=== PATIENT | male | born 1945 | race Caucasian/White ===

== ENCOUNTER 2017-02-02 00:31 | Inpatient (IN) | payer MEDICARE, OTHER ==
--- NOTE | ~2017-02-02 | CN ---
Consultation Report [facility] [address] [place]. [address] NAME: SERJIO MARX : 46 STATUS : ADM IN PAT#: [id number] AGE: 72 ADM/REG DATE : 02/02/17 MR#: [id number] REPORT SERV DATE: 02/05/17 DICTATED BY: SRIDEVI TORRES DATE: 02/05/17 REPORT STATUS : Draft TRANSCRIBED BY: MODGerald DATE: 02/05/17 CONSULT DATE OF CONSULTATION: 02/04/2017 HISTORY OF PRESENT ILLNESS: Mr. Stuart Rey is a pleasant gentleman, who has a history of chronic abdominal pain especially in the lower abdomen with colicky in nature. He initially presented to the ER in [facility] and he also had complaints of pain in the epigastric region and in the chest, and was transferred here. An EKG was done, and a stress test was done, and they were found to be normal. The patient complains of now having colicky abdominal pain in the lower abdomen. He is on hydrocodone about 10 mg four times a day for chronic back pain. He has no constipation, no nausea, and no vomiting. PAST MEDICAL HISTORY: His previous medical history is significant for diverticulosis, nephrolithiasis, hypertension, coronary artery disease, peripheral vascular disease, history of mesenteric ischemia with celiac artery stenting, gastroesophageal reflux disease, gastroparesis, and chronic abdominal pain. PAST SURGICAL HISTORY: Significant for cholecystectomy, appendectomy, TURP, left carotid endarterectomy, lumbar fusion, cardiac PCI, celiac artery PCI. ALLERGIES: NONE KNOWN. HOME MEDICATIONS: Aspirin 81 mg per day, Colace 200 mg daily p.r.n., Levsin 0.125 mg q.4 hours p.r.n., lidocaine topical patch p.r.n., Reglan 10 mg before meals, Lopressor 25 mg t.i.d., nitroglycerin 0.4 mg sublingual p.r.n., Protonix 40 mg daily, Prilosec 20 mg daily, Endocet 10/325 one tablet q.i.d., Pravachol 40 mg at bedtime, Phenergan 25 mg q.4 hours p.r.n., and Ambien 10 mg at bedtime. SOCIAL HISTORY: He was a former smoker. Quit years ago. Denies any alcohol. FAMILY HISTORY: Positive for coronary artery disease in multiple members of his family. Father diseased of cirrhosis of the liver. Siblings with history of cirrhosis and coronary artery disease. LABORATORY DATA: Lab show a WBC count of 15, with a hemoglobin of 15.1, hematocrit of 45.5, platelet count is 244. BUN, creatinine, and electrolytes are normal. Total bilirubin is 0.5. ALT is 20, AST is 17, alkaline phosphatase is 97. Cardiac enzymes are 0.11 at [facility]. He had an elevated troponin to 0.16. CPK was also elevated, and CK-MB was also elevated. Urinalysis was normal. Chest x-ray showed COPD. CT scan of the abdomen shows a 3.63 cm distal abdominal aortic aneurysm, but no other pathology. PHYSICAL EXAMINATION: VITAL SIGNS: Temperature is normal. Consultation Report [address] [address] NAME: SERJIO MARX : 46 STATUS : ADM IN [facility]#: [id number] AGE: 72 ADM/REG DATE : 02/02/17 MR#: [id number] REPORT SERV DATE: 02/05/17 DICTATED BY: SRIDEVI TORRES DATE: 02/05/17 REPORT STATUS : Draft TRANSCRIBED BY: JORDANA DATE: 02/05/17 NECK: Supple. Trachea is central. Carotids are well felt on both sides. CARDIOVASCULAR: S1 and S2 are heard. There is no S3. ABDOMEN: Soft. Just complaints of tenderness in the lower abdomen around the umbilicus. Bowel sounds are heard. Hernial orifices are normal. EXTREMITIES: Dorsalis pedis and posterior tibial are well felt on both sides. NEUROLOGIC: Higher functions, cranial nerves and reflexes are normal. CURRENT MEDICATIONS: Aspirin 81 mg per day, Atorvastatin 80 mg per day, enoxaparin (Lovenox) 40 mg subcu q.24 hours, Reglan 10 mg p.o. three times a day, metoprolol 25 mg p.o. b.i.d., oxycodone 10/325, one tablet t.i.d. CURRENT LABORATORY DATA: BUN, creatinine, and electrolytes are normal. Hemoglobin is 11.2, hematocrit is 33.3. CPK is 460. Troponin is normal. He has had a stress test done here which was found to be normal. IMPRESSION: 1. Colicky abdominal pain. Differential diagnosis of irritable bowel syndrome. 2. Diarrhea, intermittent with abdominal pain. Differential diagnosis of irritable bowel syndrome/bacterial overgrowth. 3. Gastroesophageal reflux disease. 4. Anemia. 5. Peripheral vascular disease. 6. Chronic back pain. 7. Peripheral vascular disease. 8. Coronary artery disease. 9. Hypertension. 10.Nephrolithiasis. 11.Diverticulosis. PLAN: Hemoccult stools for blood. Gastric emptying study. Small bowel follow through. An ultrasound abdomen with Doppler to assess flow in the mesenteric vessels. Protonix 40 mg p.o. b.i.d., Carafate 10 mL p.o. three times a day, dicyclomine 20 mg p.o. t.i.d. Thank you for the consult. We will follow the patient with you. EVA/JORDANA Sridevi Torres M.D. / [id number] CC: Consultation Report [address] [address] NAME: SERJIO MARX : 46 STATUS : ADM IN [facility]#: [id number] AGE: 72 ADM/REG DATE : 02/02/17 MR#: [id number] REPORT SERV DATE: 02/05/17 DICTATED BY: SRIDEVI TORRES DATE: 02/05/17 REPORT STATUS : Draft TRANSCRIBED BY: JORDANA DATE: 02/05/17 MD Terri Cesar MD
--- NOTE | ~2017-02-02 | IDS ---
Interim Discharge Summary [facility] [address] [place]. [address] NAME: SERJIO MARX : 46 STATUS : ADM IN PAT#: [id number] AGE: 72 ADM/REG DATE : 02/02/17 MR#: [id number] REPORT SERV DATE: 02/07/17 DICTATED BY: JR. HANSON WILLIAM JOHN DATE: 02/07/17 REPORT STATUS : Draft TRANSCRIBED BY: MODL DATE: 02/07/17 ADMISSION DATE: 02/02/2017 DISCHARGE DATE: WORKING DIAGNOSES: Include, 1. Acute on chronic abdominal pain. 2. Severe gastroparesis. 3. 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 4. Elevated creatine kinase. 5. History of celiac artery stenosis. 6. Urgent hypertension. 7. 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 8. Elevated troponin. 9. Hypokalemia. 10.Left subclavian stenosis operations procedures and CT of the brain done 02/02/2017, which showed mild generalized atrophy. 11.Echocardiogram done 02/02/2017, which showed normal left ventricular size and systolic function. Ejection fraction of 60%. No regional wall motion abnormalities. There was mild diastolic dysfunction. There was normal right ventricular size and systolic function with trace pericardial effusion. There was mild calcific aortic valve stenosis with a mean pressure of 14 mmHg and a calculated aortic valve area of 1.4 sq cm. There was no significant change when compared to prior study. 12.MRI of the brain done 02/03 showed minimal focal area of restricted diffusion in left parietal and occipital lobes consistent with minimal acute infarcts. There was atrophy and chronic microvascular change and minimal mucosal thickening of the ethmoid sinuses. 13.Carotid flow study done 02/05, which showed bilateral carotid category 1 disease with right vertebral antegrade flow and left vertebral biphasic flow. Findings suggested high-grade left subclavian stenosis. 14.Gastric emptying study done 02/05, which showed severe delayed gastric emptying with less than 5% emptying at 90 minutes. 15.Mesenteric duplex ultrasound done 02/05 showed findings possibly consistent with ischemic changes resulting in abdominal pain, however, very poorly visualized secondary to overlying bowel gas. Recommend this be confirmed with MRA of the abdominal vessels. The exam, however, did clearly indicate SMA stenosis. 16.Small-bowel follow-through done 02/07, which showed intrinsically normal small bowel with transit time of less than 90 minutes. CONSULTING PHYSICIANS: Include Dr. Wolfe of Neurology and Dr. Saleh of Gastroenterology. CURRENT MEDICATIONS: Please see list. HOSPITAL COURSE: Briefly, the patient was a 72-year-old gentleman transferred from [facility] Emergency Department to [facility] on 02/02 for abdominal pain and elevated blood pressure and dysarthria. The patient presented to [facility] Emergency Room on evening with multiple complaints including abdominal pain, elevated blood pressure, Interim Discharge Summary [address] [address] NAME: SERJIO MARX : 47 STATUS : ADM IN PAT#: [id number] AGE: 72 ADM/REG DATE : 02/02/17 MR#: [id number] REPORT SERV DATE: 02/07/17 DICTATED BY: JR. HANSON WILLIAM JOHN DATE: 02/07/17 REPORT STATUS : Draft TRANSCRIBED BY: JORDANA DATE: 02/07/17 dizziness, and dysarthria. He does have a history of chronic abdominal pain and has undergone an extensive workup by Dr. Saleh as well as Dr. Dooley with a history of peripheral arterial disease requiring celiac artery stenting. The patient described the pain as severe in nature associated with nausea, but no vomiting, diarrhea, or constipation. On the prior evening sometimes during an episode of severe abdominal pain, his family noted that he was slurring words. He described lightheadedness, feeling of being unsteady on his feet. A family member took his blood pressure with systolic pressures over 240. He therefore presented to the emergency room at [facility] where he had one-time systolic pressure greater than 210. CT of the abdomen and pelvis were unremarkable. White count was 15,000. Troponin was mildly elevated at 0.11. EKG was nonischemic. The patient was subsequently transferred to [facility]. Regarding the patient's abdominal pain, the patient is being followed by Dr. Saleh. He has had multiple studies including stool studies and small-bowel follow-through, which were normal. He did have a gastric emptying study, which showed severely delayed gastric emptying. He has been started on Reglan liquid by Dr. Saleh. Apparently, the IV and tablet formulations do not work for this patient. In addition, the patient had a mesenteric ultrasound, which showed findings suggestive of mesenteric ischemia with SMA stenosis. Recommendation was for an MRA of the abdomen, which is ordered. Regarding the urgent hypertension, this resolved with control of the pain. Regarding the small acute left parietal and occipital infarct. Given the patient's symptoms, an MRI of the brain was done, which did show small parietal and occipital infarcts. He had an echocardiogram as detailed above. He also had a carotid ultrasound, which did not show carotid disease, but did show left subclavian stenosis. I have requested Vascular Surgery to see the patient, Dr. Dooley has seen him in the past. OUTSTANDING ISSUES: 1. Follow up on vascular surgery consult. 2. Follow up on MRA of the abdominal vessels. 3. Advance diet to regular, and if tolerated after the remainder of the workup is complete, may discharge home. 4. For today's lab and exam, please see the progress note. One of my partners will assume care in the morning. WTaylorF/JORDANA Buddy Hanson Jr, MD / [id number] CC: Buddy Hanson Jr, MD Interim Discharge Summary [address] [address] NAME: SERJIO MARX : 46 STATUS : ADM IN [facility]#: [id number] AGE: 72 ADM/REG DATE : 02/02/17 MR#: [id number] REPORT SERV DATE: 02/07/17 DICTATED BY: JR. HANSON WILLIAM JOHN DATE: 02/07/17 REPORT STATUS : Draft TRANSCRIBED BY: MODL DATE: 02/07/17 Terri Lang MD
--- NOTE | ~2017-02-02 | HP ---
History And Physical [place] [id number] [facility] [place]. [address] NAME: SERJIO DAVIDSON : 47 STATUS : ADM Chu PAT#: [id number] AGE: 72 ADM/REG DATE : 02/02/17 MR#: [id number] REPORT SERV DATE: 02/02/17 DICTATED BY: LISA CONDON DATE: 02/02/17 REPORT STATUS : Draft TRANSCRIBED BY: MODGerald DATE: 02/02/17 DATE OF ADMISSION: 02/02/2017 POINT OF ENTRY: Transfer from [facility] Emergency Department. PRIMARY AIRCRAFT SERVICER: Dr. Saleh. CHIEF COMPLAINT: Abdominal pain, elevated blood pressure, and dysarthria. HISTORY OF PRESENT ILLNESS: Mr. Davidson is a 72-year-old gentleman with a history of chronic abdominal pain as well as gastroparesis, peripheral arterial disease, coronary disease, and hypertension, who presented to [facility] Emergency Department on evening with multiple complaints including severe epigastric abdominal pain with elevated blood pressure and dizziness and dysarthria. The patient has history of chronic abdominal pain who has undergone extensive workup by both Dr. Saleh as well as Dr. Dooley given his history of peripheral arterial disease requiring celiac artery stenting. As far as I can tell, the diagnosis he carries is gastroesophageal reflux disease as well as some gastroparesis. The patient states that he has been doing well for the past year without any significant abdominal pain or attacks, having been able to eat and drink as he pleased. He started to develop recurrence of his chronic abdominal pain in the epigastric region starting on Sunday evening. He described it as very severe in nature with some associated nausea, but denies any vomiting, diarrhea, or constipation. On evening in the throes of his severe abdominal pain, his family noted that he was slurring his words. The patient also describes some lightheadedness, feeling unsteady on his feet, and just generally not feeling well as well as having some left-sided chest pain in addition to the abdominal pain. His [id number] came to check on him and took his blood pressure and it was in the 240s over 120s. Initial evaluation in the emergency department was notable for some very elevated blood pressures which they documented at one time systolics greater than 210. CT scan of the abdomen and pelvis was unremarkable. Labs notable for a white count of 15,000. Troponin was mildly elevated at 0.11. EKG was nonischemic. Chest x-ray was clear. The patient was given various rounds of pain medicines, antiemetics, as well as Lopressor 5 mg IV x2 with dramatic improvement in the patient's blood pressure now almost to normal levels. The patient was subsequently transferred to [facility] for higher level of care. REVIEW OF SYSTEMS: Comprehensive review of system otherwise negative unless listed in the history of present illness. PREVIOUS MEDICAL HISTORY: 1. Chronic abdominal pain. 2. Gastroparesis. History And Physical [address] [address] NAME: SERJIO DAVIDSON : 47 STATUS : ADM hCu PAT#: [id number] AGE: 72 ADM/REG DATE : 02/02/17 MR#: [id number] REPORT SERV DATE: 02/02/17 DICTATED BY: LISA CONDON DATE: 02/02/17 REPORT STATUS : Draft TRANSCRIBED BY: JORDANA DATE: 02/02/17 3. Gastroesophageal reflux disease. 4. History of mesenteric ischemia with celiac artery stenting. 5. Peripheral arterial disease. 6. Coronary artery disease with prior PCI. 7. Hypertension. 8. Nephrolithiasis. 9. Diverticulosis. 10.Bladder diverticulum. 11.History of pleural plaques. SURGICAL HISTORY: 1. Cholecystectomy. 2. Appendectomy. 3. TURP. 4. Left carotid endarterectomy. 5. Lumbar fusion. 6. Cardiac PCI. 7. Celiac arterial PCI. ALLERGIES: NO KNOWN DRUG ALLERGIES. HOME MEDICATIONS: 1. Aspirin 81 mg daily. 2. Colace 200 mg daily p.r.n. 3. Levsin 0.125 mg q.4 hours p.r.n. 4. Lidocaine one topical patch daily p.r.n. 5. Reglan 10 mg before meals. 6. Lopressor 25 mg t.i.d. 7. Nitroglycerin 0.4 mg sublingual p.r.n. 8. Protonix 40 mg daily. 9. Prilosec 20 mg daily. 10.Endocet 10/325 one tab q.i.d. 11.Pravachol 40 mg at bedtime. 12.Phenergan 25 mg q.4 hours p.r.n. 13.Ambien 10 mg at bedtime. SOCIAL HISTORY: Former smoker. Quit a year ago. Denies any alcohol. Denies any illicits. FAMILY MEDICAL HISTORY: Mother with coronary artery disease. Still living in her 80s. Father with history of cirrhosis. Siblings with history of cirrhosis and coronary artery disease. LABS AND IMAGIN. White count 15.0, hemoglobin 15.1, hematocrit is 45.1, and platelet count is 244. 2. Sodium is 141, potassium 3.8, chloride 102, carbon dioxide 28, BUN 21, creatinine 1.3, glucose is 134, calcium is 9.7, protein is 8.1, albumin is 4.3, bilirubin is 0.5, ALT is 20, AST 17, alkaline phosphatase is 97. History And Physical [address] [address] NAME: SERJIO DAVIDSON : 47 STATUS : ADM Chu PAT#: [id number] AGE: 72 ADM/REG DATE : 02/02/17 MR#: [id number] REPORT SERV DATE: 02/02/17 DICTATED BY: LISA CONDON DATE: 02/02/17 REPORT STATUS : Draft TRANSCRIBED BY: MODGerald DATE: 02/02/17 3. Troponin is 0.11 at [facility], on recheck troponin here is 0.16, CPK is 462, CK-MB is 3.3. 4. Urinalysis: Specific gravity of 1.020, no evidence of any infection. 5. Chest x-ray per report from [facility] showed COPD type changes with multiple old left rib fractures. 6. CT scan of the abdomen and pelvis also performed at [facility] Emergency Department showed a 3.3 cm distal abdominal aortic aneurysm, but otherwise, no acute abdominopelvic pathology. 7. EKG per my review shows normal sinus rhythm. Heart rates in the 70s with no evidence of acute ischemia or infarction. PHYSICAL EXAMINATION: VITAL SIGNS: Temperature is 97.6 degrees Fahrenheit, pulse is 71, respirations 16, saturating 96% on 2 L by nasal cannula, and blood pressure is 91/62. GENERAL: The patient is awake, alert, in no acute distress. Resting comfortably in bed. He is a well-developed, well-nourished, elderly male. Multiple family members are at bedside. HEENT: Atraumatic and normocephalic. Moist mucous membranes. Pupils are equal, round, reactive to light and accommodation. Extraocular eye movements intact. No scleral icterus. CARDIAC: Regular rate and rhythm. He does have a 2/6 systolic murmur, best over left lower sternal border. Normal S1, normal S2. LUNGS: Clear to auscultation bilaterally. No wheezes, rhonchi, or crackles. ABDOMEN: Soft, tender to palpation over the epigastrium, but no rebound, guarding, or rigidity. EXTREMITIES: Warm, perfused. No cyanosis, clubbing, or edema. SKIN: Warm and dry. PSYCH: Affect appropriate. NEURO: Alert and oriented x3. Cranial nerves 2 through 12 grossly intact. Speech is normal. Gait is not assessed. Strength is 5/5 in bilateral upper and lower extremities. ASSESSMENT: Mr. Davidson is a 72-year-old gentleman who developed the acute onset of severe epigastric abdominal pain on Sunday evening and then found to be severely hypertensive with dysarthria, dizziness, and ataxia, likely secondary to hypertensive emergency in the setting of uncontrolled abdominal pain. PROBLEM LIST: 1. Acute on chronic abdominal pain. 2. Hypertensive emergency. 3. Elevated troponin value. 4. Dysarthria and ataxia. 5. Leukocytosis. 6. Peripheral artery disease. PLAN: 1. Acute on chronic abdominal pain. The patient states that he has been doing well for the past year until Sunday evening when he developed the acute onset of abdominal pain. Having received some IV pain medications at [facility], his abdominal pain History And Physical [address] [address] NAME: SERJIO DAVIDSON : 47 STATUS : ADM [facility] PAT#: [id number] AGE: 72 ADM/REG DATE : 02/02/17 MR#: [id number] REPORT SERV DATE: 02/02/17 DICTATED BY: LISA CONDON DATE: 02/02/17 REPORT STATUS : Draft TRANSCRIBED BY: MODL DATE: 02/02/17 is much improved. We will continue the patient's home medications including Levsin and Reglan, place him on some IV Protonix. We will ask patient's primary horticultural farmworker, Dr. Saleh, for assistance with abdominal pain. CT scan of the abdomen and pelvis was unremarkable. We will check a lipase and amylase given his epigastric nature. 2. Hypertensive emergency. I suspect the patient's elevated blood pressures with systolic as high as 240s and diastolic as high as 120s was secondary to uncontrolled abdominal pain. The patient's blood pressure is now almost on the low side after having received adequate pain control as well as two doses of Lopressor at [facility]. We will continue the patient's home medications. Place him on some hydralazine IV p.r.n. for elevated blood pressures. We will check a CT scan of the brain as well as continue to trend out cardiac enzymes. 3. Dysarthria and ataxia. I suspect the patient's neurologic symptoms represent the neurologic sequela of hypertensive emergency as these have now resolved as his blood pressure has improved. We will check a stat CT scan of the brain as that was not checked at [facility]. Continue to trend out cardiac enzymes. 4. Elevated troponin value. Again, I suspect this is all demand ischemia from his hypertensive emergency. The patient currently denies any chest pain. His EKG is nonischemic. We will continue to trend out cardiac enzymes. Continue the patient's home aspirin as well as beta betty. Place him on high-dose statin and check an echocardiogram. 5. History of mesenteric ischemia. We will defer again to Dr. Saleh, but CT scan of the abdomen and pelvis was unremarkable. The patient denies any recent bleeding to suggest possible ischemic colitis or uncontrolled mesenteric ischemia. 6. DVT prophylaxis. Lovenox subcu. CODE STATUS: The patient wished to be full code. JCB/MODL Lisa Condon MD / [id number] CC: Buddy Hanson Jr, MD Martha Ziegler, MD Jay Philippose, M.D.
--- NOTE | ~2017-02-02 | CN ---
Consultation Report [facility] [address] [place]. [address] NAME: SERIJO MARX : 46 STATUS : ADM IN [facility]#: [id number] AGE: 72 ADM/REG DATE : 02/02/17 MR#: [id number] REPORT SERV DATE: 02/05/17 DICTATED BY: DATE: REPORT STATUS : Draft TRANSCRIBED BY: MODL DATE: 02/05/17 NEUROLOGY CONSULTATION DATE OF CONSULTATION: 02/05/2017 REASON FOR CONSULT: Stroke. HISTORY OF PRESENT ILLNESS: This is a 72-year-old male who presented to [facility] on 02/02/2017 secondary to nausea, abdominal pain as well as episodes of dysarthria. The patient's dysarthria since resolved. The patient does report about 3 to 4-day duration of seeing flashing lights in his eyes as well as blurry vision that is episodic. The patient specifically denies ataxia, denies gait abnormalities, and denies any vertigo type of sensation. The patient denies any focal weakness or numbness at the time of evaluation. The patient does have epigastric pain as well as nausea and vomiting, which the patient reports have been worse overnight. The patient, otherwise, denies any gastric bleeding. The patient prior to the hospitalization was not noted to have any fever, chills, nausea, vomiting, chest pain, or shortness of breath. The patient is compliant with aspirin at baseline and has not had any recent changes in medication. REVIEW OF SYSTEMS: Negative except for those mentioned in the HPI. PAST MEDICAL HISTORY: Significant for chronic abdominal pain, gastroparesis as well as gastroesophageal reflux disease. The patient was also noted to have mesenteric ischemia and celiac artery stenting, peripheral artery disease, coronary artery disease, hypertension, nephrolithiasis, diverticulosis, bladder diverticulum as well as history of pleural plaques at the time of evaluation. ALLERGIES: THE PATIENT WAS NOTED TO HAVE NO KNOWN DRUG ALLERGIES. HOME MEDICATIONS: Consist of aspirin, Colace, Levsin, lidocaine, Reglan, Lopressor, nitroglycerin, Protonix, Prilosec, Endocet, pravastatin, Phenergan, and Ambien. SOCIAL HISTORY: The patient was noted to have been previous smoker, quit a year ago. Denies any alcohol or illicit drug usage. FAMILY HISTORY: Significant for coronary artery disease as well as cirrhosis. Again, review of systems is negative except for those mentioned in the HPI. PHYSICAL EXAMINATION: VITAL SIGNS: Overnight, the patient was noted to have vital signs with T-max of 98.6, heart rate of 63 to 98, respirations of 12 to 25, and blood pressure of 132 to 212 over 61 to 96. GENERAL: The patient is well developed, well nourished, in no acute distress. Consultation Report [address] [place]. [address] NAME: SERJIO MARX : 46 STATUS : ADM IN PAT#: [id number] AGE: 72 ADM/REG DATE : 02/02/17 MR#: [id number] REPORT SERV DATE: 02/05/17 DICTATED BY: DATE: REPORT STATUS : Draft TRANSCRIBED BY: MODL DATE: 02/05/17 CARDIOVASCULAR: Regular rate and rhythm. No carotid bruits were otherwise auscultated. PULMONARY: Clear to auscultation bilaterally. NEUROLOGICAL: Generally, the patient is alert, oriented to person, place, year, and month. The patient was noted to have no dysarthria, no aphasia. At the time of evaluation, intact registration. Mild difficulties with recall. Follows simple and 2-step commands at the time of evaluation. CRANIAL NERVES 2 THROUGH 12: Pupils equal, round, and reactive to light. Extraocular eye movement was noted to be intact. Intact peripheral vision. Symmetrical facial expression and sensation. Midline tongue. Normal palatal movement. Mild decreased hearing in bilateral ears. The patient was noted to have 5/5 bilateral upper and lower extremity strength. Normal [id number] examination without ataxia. Deep tendon reflex was attenuated throughout. Downgoing toe on bilateral plantar reflexes. The patient demonstrates stable station and stable gait, but reports blurry vision with standing. LABORATORY STUDIES: Demonstrated white blood cell count of 9.2, hemoglobin of 12.0, hematocrit of 36.2, and platelet count of 187. Chemistry Panel: Sodium 145, potassium 3.4, chloride 112, bicarb 22, BUN of 8, creatinine 1.13, glucose of 109, calcium of 8.5, and magnesium 1.8. At the time of evaluation, hemoglobin A1c and fasting lipid panel are unavailable. At the time of evaluation, CT scan of the brain demonstrated no acute process. MRI of the brain demonstrated left parietooccipital cortical infarct as well as left subcortical small stroke. IMPRESSION: 1. Stroke, mostly in the left parieto-occipital cortical area. NIH Stroke Scale currently is 0. The patient reports some blurry vision, especially with standing as well as episodes of flashing lights. We will recommend the patient to be on aspirin and Plavix as well as Lipitor. Carotid Doppler study is pending. We will also obtain fasting lipid panel and hemoglobin A1c. The patient currently denies any vertigo or any gait abnormalities. We will also start the patient on thiamine 100 mg p.o. daily. 2. Blurry vision. We will check orthostatic vitals every shift. RECOMMENDATION: 1. Orthostatic vitals q. shift. 2. Thiamine 100 mg p.o. daily. 3. Fasting lipid panel and hemoglobin A1c with morning labs. 4. Serum ammonia, TSH, free T4, vitamin B12, and folate with morning labs. 5. Carotid Doppler study pending. 6. Aspirin 81 mg p.o. daily. 7. Lipitor 80 mg p.o. at bedtime. 8. Plavix 75 mg p.o. daily. [facility] Consultation Report [address] [place]. [address] NAME: SERJIO MARX : 46 STATUS : ADM IN [facility]#: [id number] AGE: 72 ADM/REG DATE : 02/02/17 MR#: [id number] REPORT SERV DATE: 02/05/17 DICTATED BY: DATE: REPORT STATUS : Draft TRANSCRIBED BY: MODL DATE: 02/05/17 Papo Garcia MD / [id number] CC: MD Terri Cesar MD
--- NOTE | ~2017-02-02 | DS ---
Discharge Summary [facility] [address] [place]. [address] NAME: SERJIO MARX : 46 STATUS : DIS IN PAT#: [id number] AGE: 72 ADM/REG DATE : 02/02/17 MR#: [id number] REPORT SERV DATE: 02/15/17 DICTATED BY: DATE: REPORT STATUS : Draft TRANSCRIBED BY: MODL DATE: 02/14/17 ADMISSION DATE: 02/02/2017 DISCHARGE DATE: 02/14/2017 ATTENDING PHYSICIANS: Dr. Buddy Hanson, Dr. Apolinar Villegas, and Dr. Usama Gordillo. CONSULTANTS: Included Dr. Jayne Garcia of Neurology and Dr. Lev Dooley of Vascular Surgery and Dr. Saleh of Gastroenterology. The patient was also followed by the [facility] during the hospitalization. DISCHARGE DIAGNOSES: 1. Acute on chronic abdominal pain - due to gastroparesis. Radiographically severe on gastric emptying study this admission. 2. History of mesenteric stenosis - no evidence of mesenteric stenosis this admission. 3. Acute left parietal occipital cerebrovascular accident. 4. High-grade left subclavian stenosis - status post subclavian stents on 02/13/2017. 5. Demand related ischemia - no acute myocardial infarction. 6. History of coronary artery disease - coronary catheterization on 02/12/2017 demonstrating multi-vessel nonocclusive coronary artery disease with recommendation for ongoing medical management. 7. Hypertension. 8. Hyperlipidemia. 9. Impaired fasting glucose with hemoglobin A1c of 5.8. 10.Acute kidney injury present at admission, resolved. Newly initiated on lisinopril this admission for outpatient followup and repeat basic metabolic panel. 11.Mild diastolic dysfunction, chronic and compensated. 12.Mild calcific aortic valve stenosis. 13.3 cm infrarenal aortic aneurysm. IMAGING AND DIAGNOSTICS: 1. Brain CT without contrast on 02/02/2017 for dysarthria shows mild generalized atrophy. 2. Echocardiogram on 02/02/2017 showing normal left ventricular size and systolic function. Estimated EF 60%. No regional wall motion abnormalities. Mild diastolic dysfunction. Normal right ventricular size and systolic function. Trace pericardial effusion. Mild calcific aortic valve stenosis with mean pressure 14 mmHg and calculated aortic valve area of 1.4 sq cm. 3. MRI of the brain without contrast on 02/03/2017 shows minimal focal area of restricted diffusion in the left parietal and occipital lobes consistent with minimal acute infarcts. Atrophy and chronic microvascular white matter changes. Minimal mucosal thickening in the ethmoid sinuses. Interval mucous retention cyst in the left maxillary sinus. 4. Gastric emptying study on 02/06/2017 shows severe delayed gastric emptying with less than 5% emptying at 90 minutes. 5. Carotid Dopplers on 02/06/2017 for CVA shows bilateral category 1 carotid less than 50% luminal stenosis. Findings suggest high-grade left subclavian stenosis. 6. Mesenteric duplex on 02/07/2017 shows findings could be consistent with ischemic Discharge Summary [address] [address] NAME: SERJIO MARX : 46 STATUS : DIS IN PAT#: [id number] AGE: 72 ADM/REG DATE : 02/02/17 MR#: [id number] REPORT SERV DATE: 02/15/17 DICTATED BY: DATE: REPORT STATUS : Draft TRANSCRIBED BY: MODL DATE: 02/14/17 changes resulting in abdominal pain, however, poor visualization due to overlying bowel gas. 7. Small bowel follow-through on 02/07/2017 shows small bowel intrinsically normal. Small bowel transit time less than 90 minutes. 8. MRA of the abdomen with contrast on 02/08/2017 for celiac stenosis shows celiac artery stent obscures visualization. Appropriate appearance of flow beyond the stent suggests wide patency. Widely patent SMA. 3 cm infrarenal aortic aneurysm. Probable bladder diverticulum partially imaged in the pelvis. 9. Coronary catheterization 02/12/2017 showing left ventricular ejection fraction 50% with inferior hypokinesis at the base. Patent LAD stent with diffuse 50% in-stent restenoses but normal flow. Complete total occlusion of OM2 which is a small vessel less than 2 mm in diameter, stable from studies 15 years prior. 50-75% stenosis of the distal RCA before PL3 with recommendation for medical therapy. 10.A left subclavian artery stent placed by Dr. Dooley on 02/13/2017. PERTINENT LABS: Creatinine at admission was 1.47, 1.08 at the time of discharge. Total cholesterol 110, HDL 52, LDL 40, and triglycerides 91. Liver enzymes were normal throughout the admission as were amylase and lipase. Troponin was minimally elevated at 0.16. Thyroid function studies normal. Hemoglobin A1c 5.8. Ammonia level negative. Lactic acid level negative. White blood cell count normal throughout admission. Hemoglobin between 10.7 and 12.2 with normal iron studies, platelets 250, normal coagulation studies. BRIEF HISTORY: For full details, please see the previously dictated history of present illness by Dr. Sotero Parker. This is a 72-year-old white male, transferred from [facility] with chief complaints of abdominal pain, hypertensive urgency, and dysarthria. The patient has a history of chronic abdominal pain and has undergone extensive workup by both Dr. Saleh and Dr. Dooley for a history of gastroparesis, gastroesophageal reflux disease, and previous celiac stenosis. He had been doing well for the year prior, with no significant abdominal pain or attacks, until a few days prior to this admission when he began developing increased epigastric abdominal pain with associated nausea but no vomiting, diarrhea, or constipation. During an episode of acute pain, he was noted to be slurring his words, with some lightheadedness, unsteady on his feet, left-sided chest pain and elevated blood pressure as high as 240/120. They initially sought care at the [facility], and patient was subsequently transferred here to be followed by his specialists. HOSPITAL COURSE: For full details, please also reference interim summary dictated by Dr. Buddy Hanson on 02/07/2017. During this admission, the patient was seen in consultation by Dr. Saleh. He had multiple studies including stool studies, small-bowel follow- through, MRA of the abdomen, abdominal ultrasounds, gastric emptying study. The results of all indicated the most likely cause of his abdominal pain to be gastroparesis, with severely delayed gastric emptying and 5% emptying at 90 minutes. He was started on Reglan during the admission, and the liquid formulation seemed to work better than the tablet formulation he had been taking at home. The patient also had urgent neurologic evaluation during the admission with MRI revealing small acute left parietal and occipital infarcts. He also had an echocardiogram done as Discharge Summary [address] [address] NAME: SERJIO MARX : 46 STATUS : DIS IN PAT#: [id number] AGE: 72 ADM/REG DATE : 02/02/17 MR#: [id number] REPORT SERV DATE: 02/15/17 DICTATED BY: DATE: REPORT STATUS : Draft TRANSCRIBED BY: MODL DATE: 02/14/17 detailed above and a carotid ultrasound as part of the workup. Recommendation was for medical management including Plavix in addition to aspirin, statin, optimization, continuation of low-dose beta betty, and initiation of low-dose WAQAS inhibitor. These were done. In the process of evaluation of stroke risk factors, the patient was determined to have a significant left subclavian stenosis which was felt to be symptomatic. Vascular Surgery followed the patient and requested cardiac clearance prior to placement of a left subclavian stent. The patient underwent coronary catheterization on 02/12/2017 with recommendation for medical management. He was cleared for subclavian stent placement which occurred on 02/13/2017 without any difficulty. On 02/14/2017, the patient reported feeling well and at baseline. He had no recurrence of his abdominal pain or abdominal complaints. His blood pressure was well controlled. He was not experiencing any ongoing neurologic symptoms and felt that he had made a recovery to his prior functional baseline. He was requesting to be discharged home and will have multiple followup appointments. DISCHARGE DATA: The patient is discharged home in the care of his supportive family with no specific activity restrictions. Regarding diet, he should adhere to a cardiac diet, with minimal concentrated sweets given new diagnosis of impaired fasting glucose and for prior comorbid conditions. He will have multiple followup appointments with primary care provider, Dr. Terri Lang, in one week for hospital followup appointment as well as basic metabolic panel on initiation of lisinopril. He also needs to follow up with Dr. Dooley in two weeks. We have arranged for an appointment for the patient at the [facility] which will occur in May. DISCHARGE MEDICATIONS: Include: 1. Aspirin 81 mg p.o. daily. 2. Lipitor 80 mg p.o. daily. 3. Bentyl 20 mg p.o. q.a.c. t.i.d. 4. Prinivil 2.5 mg p.o. daily. 5. Reglan 10 mg p.o. q.a.c. t.i.d. (liquid form). 6. Metoprolol 25 mg p.o. twice a day. 7. Protonix 40 mg p.o. daily. 8. Sublingual nitroglycerin 0.4 mg as needed for chest pain. 9. Colace 200 mg p.o. daily as needed for constipation. 10.Lidoderm one patch topical as needed for shoulder pain. 11.Phenergan 25 mg p.o. every four hours as needed for nausea and vomiting. 12.Ambien 10 mg p.o. at bedtime. 13.Percocet 10/325 mg one tablet p.o. four times a day as needed for pain. 14.Plavix 75 mg p.o. daily. Thirty five minutes was spent in completion of the discharge summary. Discharge Summary [address] [address] NAME: SERJIO MARX : 46 STATUS : DIS IN PAT#: [id number] AGE: 72 ADM/REG DATE : 02/02/17 MR#: [id number] REPORT SERV DATE: 02/15/17 DICTATED BY: DATE: REPORT STATUS : Draft TRANSCRIBED BY: JORDANA DATE: 02/14/17 GRIFFIN/JORDANA Usama Gordillo M.D. / [id number] CC: George Shelton MD Jay Philippose, M.D. Larry Sprouse II, M.D. [facility]
--- NOTE | ~2017-02-02 | OP ---
Record Of Operation [facility] [address] [place]. [address] NAME: SERJIO MARX : 46 STATUS : ADM IN PAT#: [id number] AGE: 72 ADM/REG DATE : 02/02/17 MR#: [id number] REPORT SERV DATE: 02/14/17 DICTATED BY: CARLOS SALGUERO II DATE: 02/14/17 REPORT STATUS : Draft TRANSCRIBED BY: MODGerald DATE: 02/14/17 DATE OF PROCEDURE: 02/13/2017 PREOPERATIVE DIAGNOSES: 1. Recent left parieto-occipital stroke. 2. Subclavian steal syndrome with a critical stenosis of left subclavian artery. POSTOPERATIVE DIAGNOSES: 1. Recent left parieto-occipital stroke. 2. Subclavian steal syndrome with a critical stenosis of left subclavian artery. PROCEDURES: 1. Arch aortogram. 2. Selective left subclavian and upper extremity angiogram. 3. Percutaneous primary stent placement of left subclavian artery. ANESTHESIA: Local with MAC. IV FLUIDS: 400 mL. ESTIMATED BLOOD LOSS: 10. CONTRAST: 46. DESCRIPTION OF PROCEDURE: The patient was taken to the operating room and placed in supine position on table. Both groins were prepped and draped. I used ultrasound to identify the right common femoral artery. I performed a puncture, and placed a 6-Eritrean sheath. Systemic heparin was given. I passed a catheter into the arch of the aorta. Arch aortogram was performed demonstrating a patent thoracic aorta. There was a patent thoracic aorta. There is normal branching seen. Calcification was noted throughout the innominate and left carotid appeared to be patent. The left subclavian is patent with what appears to be a significant stenosis distally. I then passed a catheter into the left subclavian. Angiogram was performed demonstrating the proximal subclavian origin to be patent, however, in the distal portion of the subclavian, there was a critical stenosis with irregularity, stenosis was more than 90%. Beyond this, very little flow was seen within the vertebral, the axillary/brachial artery, all appeared to be patent with sluggish flow noted. At this point, we passed a wire carefully through the stenosis out into the brachial artery. We then elected to proceed with primary stent placement. We advanced a 7 mm x 37 mm stent to the site of the stenosis just proximal to the vertebral and deployed the stent without difficulty. Completion angiogram demonstrates good placement of the stent with no further stenosis seen. There is now antegrade flow seen within the vertebral with good flow demonstrated distally. There was no extravasation or dissection. We then removed all the wires and catheters and closed percutaneously. At the end of procedure, the patient was stable. He tolerated it well. Record Of Operation [address] [place]. [address] NAME: SERJIO MARX : 46 STATUS : ADM IN PAT#: [id number] AGE: 72 ADM/REG DATE : 02/02/17 MR#: [id number] REPORT SERV DATE: 02/14/17 DICTATED BY: CARLOS SALGUERO II DATE: 02/14/17 REPORT STATUS : Draft TRANSCRIBED BY: JORDANA DATE: 02/14/17 MEHRDAD/JORDANA Carlos Salguero II, M.D. / [id number] CC: George Siddiqui II, MD
--- NOTE | ~2017-02-02 | CN ---
Consultation Report [facility] [address] [place]. [address] NAME: SERJIO DAVIDSON : 47 STATUS : ADM IN [facility]#: [id number] AGE: 72 ADM/REG DATE : 02/02/17 MR#: [id number] REPORT SERV DATE: 02/10/17 DICTATED BY: DATE: REPORT STATUS : Draft TRANSCRIBED BY: MODL DATE: 02/09/17 CONSULTATION DATE OF CONSULTATION: 02/09/2017 CHIEF COMPLAINT/REASON FOR CONSULT: Preoperative evaluation prior to noncardiac procedure. HISTORY OF PRESENT ILLNESS: Mr. Davidson is a very pleasant 72-year-old gentleman who was transferred from [facility] to [facility] on 02/02/2017 for hypertension, dysarthria, and abdominal pain. He has a known history of severe vascular disease and has undergone PCI to the celiac artery previously which was demonstrated to be patent on MRA this admission. The patient occasionally has severe episodes of abdominal pain. On the evening, he was transferred while he was in the throes of his severe abdominal pain. He was found to be slurring his words, and he was found to have an acute CVA. Also during this admission the patient had found to have a positive cardiac biomarkers, left subclavian artery stenosis, and marked hypertension. The patient also has been on telemetry, and on 02/03/2017, had a run of wide-complex tachycardia probably consistent with ventricular tachycardia. The patient states that he has a prior history of coronary artery disease. He underwent remote PCI in 2016, unknown vessels. He may have seen Dr. Lopez in the past. He also underwent cardiac catheterization. He states at [place] in the past. We do not have a copy of these records. The patient does not note chest pain. He states that he has had tightness in the past every once in a while. He is mainly limited in his exertional capacity by shortness of breath. He is not able to play with his grandson due to shortness of breath. He stated that during this hospitalization when he had a wide-complex tachycardia he felt a fluttering sensation in his heart. PAST MEDICAL HISTORY: 1. Chronic abdominal pain. 2. Gastroparesis. 3. Severe peripheral vascular disease with a history of mesenteric ischemia and celiac artery stenting. 4. Left subclavian stenosis. 5. Bilateral iliac artery stenosis. 6. Coronary artery disease with a prior history of PCI. 7. Hypertension. 8. Treated hyperlipidemia. 9. History of tobacco abuse. 10.Nephrolithiasis. ALLERGIES: NO KNOWN DRUG ALLERGIES. Consultation Report [address] [place]. [address] NAME: SERJIO DAVIDSON : 47 STATUS : ADM IN [facility]#: [id number] AGE: 72 ADM/REG DATE : 02/02/17 MR#: [id number] REPORT SERV DATE: 02/10/17 DICTATED BY: DATE: REPORT STATUS : Draft TRANSCRIBED BY: MODL DATE: 02/09/17 CURRENT INPATIENT MEDICATIONS: Include: 1. Atorvastatin 325 mg p.o. daily. 2. Atorvastatin 80 mg p.o. daily. 3. Clopidogrel 75 mg p.o. daily. 4. Dicyclomine 20 mg p.o. q.a.c. 5. Enoxaparin for DVT prophylaxis. 6. Metoclopramide 10 mg p.o. q.a.c. 7. Metoprolol tartrate 25 mg p.o. b.i.d. 8. Hydrocodone/acetaminophen. 9. Pantoprazole. 10. . 11.Sucralfate. 12. . 13.Metronidazole. SOCIAL HISTORY: The patient quit smoking approximately a year ago. He has a 60 pack-year smoking history. He does not drink alcohol or use extracurricular drugs. FAMILY HISTORY: Significant for father who had his first myocardial infarction at the age of 37 and of PR at 55. His mother also has a history of coronary artery disease. He has siblings, at least three brothers and one sister with a history of coronary artery disease, who have undergone coronary artery bypass grafting. REVIEW OF SYSTEMS: All systems reviewed and is negative, except for as dictated in the HPI. PHYSICAL EXAMINATION: VITAL SIGNS: Blood pressure 134-165/63-77, pulse 70-72, respirations 18, and oxygen saturations 92% on room air. GENERAL: Mr. Davidson is a pale appearing 72-year-old gentleman. He is in no distress. NECK: I could not appreciate jugular venous distention or sammi carotid bruits. HEART: Regular rate and rhythm. Soft S1, S2. There is a 3/6 systolic murmur that is best appreciated over the left subclavian artery. There is also a murmur in the aortic band. I could not appreciate rubs or gallops. LUNGS: Hernandez are diminished but otherwise there are no wheezes, rales, or rhonchi. ABDOMEN: Soft and nontender. I could not appreciate renal bruits. EXTREMITIES: Femoral pulses are diminished bilaterally. There are bilateral femoral bruits. I could not appreciate posterior tibial pulses in the arms. The left radial artery flow is markedly diminished. NEUROLOGIC: I could not appreciate focal neurologic deficits or slurring of the words. Review of test records, medical decision making, cardiac biomarkers during this hospitalization have ranged from 0.1 to 0.16. There was a wide-complex tachycardia on nurse monitoring 11/05/2016 probably consistent with ventricular tachycardia. Last stress Consultation Report [address] [place]. [address] NAME: SERJIO DAVIDSON : 47 STATUS : ADM IN [facility]#: [id number] AGE: 72 ADM/REG DATE : 02/02/17 MR#: [id number] REPORT SERV DATE: 02/10/17 DICTATED BY: DATE: REPORT STATUS : Draft TRANSCRIBED BY: MODL DATE: 02/09/17 test performed 09/01/2014 demonstrated no ischemia. Echocardiogram performed on the demonstrated normal left ventricular chamber size and systolic function with estimated ejection fraction of 60%. There is mild calcific aortic stenosis noted. An EKG performed on 02/03/2017 demonstrated normal sinus rhythm without ischemic ST-T segment changes. MRI/MRA demonstrated an infrarenal aortic aneurysm with bilateral common iliac artery origin stenosis on the right. There was a 70% stenosis with a longer 50% narrowing; and on the left, there was a 70% stenosis at the origin for short segments. LABORATORY RESULTS: Note a sodium of 144, potassium of 4.1, BUN of 5, creatinine of 1.09, hemoglobin 10.7, hematocrit 32.7, platelet count 191. TSH 1.3. IMPRESSION REPORT AND PLAN: 1. Elevated cardiac biomarkers. 2. Wide-complex tachycardia consistent with ventricular tachycardia. 3. Severe peripheral vascular disease. 4. Hypertensive urgency. 5. Abdominal pain. 6. Mesenteric ischemia, status post PCI. 7. History of coronary artery disease, status post PCI. RECOMMENDATIONS: 1. I discussed the risks, benefits, and alternatives of cardiac catheterization with the patient including heart attack, stroke, , kidney failure, irregular heart rhythms, need for emergency surgery, pain, bleeding, and infection, and the patient is agreeable to proceed. 2. We will continue medical management as the patient is asymptomatic at this time with aspirin, atorvastatin, clopidogrel, hydrochlorothiazide, and metoprolol tartrate. 3. Consider WAQAS inhibitor post angiogram. 4. Additional recommendations pending clinical course. LGC/MODL Josephine Duncan M.D. / [id number] CC: MD Terri Cuevas MD
[~2017-02-02 00:31] MED LIST: ALEVE220 MG PO; AMB10 PO; DSS PO; ENDOCET1 TA3 PO; HALF81 PO; LEVSINTAB PO; LIDODERM TOP; LOP25 PO; NITROSTAT0.4 MG SL; PLAVIX PO; PR25 PO; PRAVACHOL40 MG PO; PRILO PO; PROTONIX PO; REG PO/LIQ
[2017-02-02 01:52] LABS: CPK 462 U/L (0-200)
[2017-02-02 01:53] LABS: CK-MB 3.3 NG/ML; TROPONIN I 0.16 NG/ML (<0.05)
[2017-02-02 04:22] LABS: CPK 538 U/L (0-200)
[2017-02-02 04:30] LABS: TROPONIN I 0.13 NG/ML (<0.05)
[2017-02-02 11:00] LABS: CPK 504 U/L (0-200)
[2017-02-02 11:01] LABS: CK-MB 4.1 NG/ML
[2017-02-03 06:05] LABS: BASOPHILS 0.1 %; BASOPHILS ABSOLUTE 0.01 10/3/uL (0.0-0.16); EOSINOPHILS 1.5 %; EOSINOPHILS ABSOLUTE 0.12 10/3/uL (0.0-0.53); HEMATOCRIT 33.3 % (40.0-51.0); IMMATURE GRANULOCYTES 0.3 %; IMMATURE GRANULOCYTES ABSOLUTE 0.02 10/3/uL (0.0-0.11); LYMPHOCYTES 33.5 %; MEAN CORPUSCULAR HEMOGLOB 30.9 pg (26.0-34.0); MEAN CORPUSCULAR VOLUME 93.5 fL (80-100); MEAN PLATELET VOLUME 9.9 fL (9.2-13.0); MONOCYTES 9.9 %; MONOCYTES ABSOLUTE 0.77 10/3/uL (0.21-1.20); NEUTROPHILS 54.7 %; NEUTROPHILS ABSOLUTE 4.23 10/3/uL (2.02-8.40); PLATELET COUNT 165 10/3/uL (150-400); RBC DISTRIBUTION WIDTH 13.7 % (12.0-16.0); RED CELL COUNT 3.56 10/6/uL (4.7-6.1); WHITE BLOOD CELLS 7.8 10/3/uL (4.5-10.5)
[2017-02-03 06:06] LABS: MANUAL DIFF NO %
[2017-02-03 06:27] LABS: ALBUMIN 2.8 G/DL (3.5-5.0); ALKALINE PHOSPHATASE 66 U/L (45-117); BUN (BLOOD UREA NITROGEN) 21 MG/DL (6-23); CALCIUM, SERUM 7.9 MG/DL (8.5-10.4); CHLORIDE, SERUM 109 MMOL/L (96-112); CO2 (CARBON DIOXIDE) 24 MMOL/L (24-34); CREATININE 1.47 MG/DL (0.70-1.30); GFR AFRICAN AMERICAN 55 ML/MIN (>=60); GFR NON AFRICAN AMERICAN 47 ML/MIN (>=60); GLOBULIN 2.7 G/DL (2.5-4.1); GLUCOSE, SERUM 92 MG/DL (60-99); POTASSIUM, SERUM 3.3 MMOL/L (3.5-5.3); SGOT(AST) 22 U/L (5-40); SGPT(ALT) 12 U/L (5-65); SODIUM, SERUM 143 MMOL/L (135-148); TOTAL BILIRUBIN 0.5 MG/DL (0-1.2); TOTAL PROTEIN 5.5 G/DL (6.0-8.5)
[2017-02-04 04:46] LABS: BASOPHILS 0.2 %; BASOPHILS ABSOLUTE 0.02 10/3/uL (0.0-0.16); EOSINOPHILS 2.7 %; EOSINOPHILS ABSOLUTE 0.25 10/3/uL (0.0-0.53); HEMATOCRIT 33.4 % (40.0-51.0); HEMOGLOBIN 11.1 g/dL (13.6-17.8); IMMATURE GRANULOCYTES 0.2 %; IMMATURE GRANULOCYTES ABSOLUTE 0.02 10/3/uL (0.0-0.11); LYMPHOCYTES 22.6 %; MEAN CORPUS HGB CONC 33.2 g/dL (32.0-36.0); MEAN CORPUSCULAR HEMOGLOB 31.1 pg (26.0-34.0); MEAN CORPUSCULAR VOLUME 93.6 fL (80-100); MEAN PLATELET VOLUME 9.9 fL (9.2-13.0); MONOCYTES 8.8 %; MONOCYTES ABSOLUTE 0.82 10/3/uL (0.21-1.20); NEUTROPHILS 65.5 %; PLATELET COUNT 181 10/3/uL (150-400); RBC DISTRIBUTION WIDTH 13.8 % (12.0-16.0); RED CELL COUNT 3.57 10/6/uL (4.7-6.1); WHITE BLOOD CELLS 9.3 10/3/uL (4.5-10.5)
[2017-02-04 04:47] LABS: MANUAL DIFF NO %
[2017-02-04 05:02] LABS: CALCIUM, SERUM 8.2 MG/DL (8.5-10.4); CHLORIDE, SERUM 112 MMOL/L (96-112); CO2 (CARBON DIOXIDE) 25 MMOL/L (24-34); CREATININE 1.22 MG/DL (0.70-1.30); GFR AFRICAN AMERICAN 69 ML/MIN (>=60); GFR NON AFRICAN AMERICAN 59 ML/MIN (>=60); GLUCOSE, SERUM 90 MG/DL (60-99); PHOSPHORUS, SERUM 2.2 MG/DL (2.5-4.5); POTASSIUM, SERUM 3.9 MMOL/L (3.5-5.3); SODIUM, SERUM 146 MMOL/L (135-148)
[2017-02-04 05:03] LABS: BUN (BLOOD UREA NITROGEN) 15 MG/DL (6-23)
[2017-02-04 05:26] LABS: PLATELET ESTIMATE ADQ (ADEQUATE)
[2017-02-05 04:31] LABS: BASOPHILS 0.2 %; BASOPHILS ABSOLUTE 0.02 10/3/uL (0.0-0.16); EOSINOPHILS 4.5 %; EOSINOPHILS ABSOLUTE 0.41 10/3/uL (0.0-0.53); HEMATOCRIT 36.2 % (40.0-51.0); HEMOGLOBIN 12.1 g/dL (13.6-17.8); IMMATURE GRANULOCYTES 0.3 %; IMMATURE GRANULOCYTES ABSOLUTE 0.03 10/3/uL (0.0-0.11); LYMPHOCYTES 25.4 %; LYMPHOCYTES ABSOLUTE 2.34 10/3/uL (0.67-4.30); MANUAL DIFF NO %; MEAN CORPUS HGB CONC 33.4 g/dL (32.0-36.0); MEAN CORPUSCULAR HEMOGLOB 31.3 pg (26.0-34.0); MEAN CORPUSCULAR VOLUME 93.5 fL (80-100); MEAN PLATELET VOLUME 10.3 fL (9.2-13.0); MONOCYTES 10.9 %; NEUTROPHILS 58.7 %; PLATELET COUNT 187 10/3/uL (150-400); RBC DISTRIBUTION WIDTH 13.6 % (12.0-16.0); RED CELL COUNT 3.87 10/6/uL (4.7-6.1); WHITE BLOOD CELLS 9.2 10/3/uL (4.5-10.5)
[2017-02-05 05:10] LABS: CALCIUM, SERUM 8.5 MG/DL (8.5-10.4); CHLORIDE, SERUM 112 MMOL/L (96-112); CO2 (CARBON DIOXIDE) 22 MMOL/L (24-34); CREATININE 1.13 MG/DL (0.70-1.30); GFR AFRICAN AMERICAN 75 ML/MIN (>=60); GFR NON AFRICAN AMERICAN 65 ML/MIN (>=60); PHOSPHORUS, SERUM 1.9 MG/DL (2.5-4.5); POTASSIUM, SERUM 3.4 MMOL/L (3.5-5.3); SODIUM, SERUM 145 MMOL/L (135-148)
[2017-02-05 05:15] LABS: BUN (BLOOD UREA NITROGEN) 8 MG/DL (6-23); GLUCOSE, SERUM 109 MG/DL (60-99)
[2017-02-05 14:36] LABS: % IRON SAT 23 % (20-50); FERRITIN 123 NG/ML (26-388); IRON BINDING CAPACITY 259 MCG/DL (250-450); IRON, SERUM 60 MCG/DL (35-150)
[2017-02-06 13:55] LABS: BUN (BLOOD UREA NITROGEN) 6 MG/DL (6-23); CALCIUM, SERUM 8.7 MG/DL (8.5-10.4); CHLORIDE, SERUM 111 MMOL/L (96-112); CHOL/HDL RATIO(NOT ORDER) 2.1 (0-5); CHOLESTEROL 110 MG/DL (< 200); CO2 (CARBON DIOXIDE) 25 MMOL/L (24-34); FREE T4 1.64 NG/DL (0.76-1.46); GFR AFRICAN AMERICAN 87 ML/MIN (>=60); GFR NON AFRICAN AMERICAN 75 ML/MIN (>=60); GLUCOSE, SERUM 106 MG/DL (60-99); HDL CHOLESTEROL 52 MG/DL (> 39); LDL CHOLESTEROL 40 MG/DL (< 130); NON-HDL CHOLESTEROL 58 MG/DL (< 160); POTASSIUM, SERUM 3.7 MMOL/L (3.5-5.3); SODIUM, SERUM 146 MMOL/L (135-148); TRIGLYCERIDE 91 MG/DL (< 150)
[2017-02-06 13:56] LABS: FOLATE 15.8 NG/ML (>5.2)
[2017-02-06 14:26] LABS: BASOPHILS 0.1 %; BASOPHILS ABSOLUTE 0.01 10/3/uL (0.0-0.16); EOSINOPHILS 5.1 %; EOSINOPHILS ABSOLUTE 0.41 10/3/uL (0.0-0.53); HEMATOCRIT 33.9 % (40.0-51.0); HEMOGLOBIN 11.2 g/dL (13.6-17.8); IMMATURE GRANULOCYTES 0.4 %; IMMATURE GRANULOCYTES ABSOLUTE 0.03 10/3/uL (0.0-0.11); LYMPHOCYTES 23.4 %; LYMPHOCYTES ABSOLUTE 1.87 10/3/uL (0.67-4.30); MANUAL DIFF NO %; MEAN CORPUSCULAR HEMOGLOB 30.7 pg (26.0-34.0); MEAN CORPUSCULAR VOLUME 92.9 fL (80-100); MEAN PLATELET VOLUME 10.2 fL (9.2-13.0); MONOCYTES 8.6 %; MONOCYTES ABSOLUTE 0.69 10/3/uL (0.21-1.20); NEUTROPHILS 62.4 %; NEUTROPHILS ABSOLUTE 4.98 10/3/uL (2.02-8.40); PLATELET COUNT 178 10/3/uL (150-400); RBC DISTRIBUTION WIDTH 13.5 % (12.0-16.0); RED CELL COUNT 3.65 10/6/uL (4.7-6.1)
[2017-02-07 06:25] LABS: BUN (BLOOD UREA NITROGEN) 4 MG/DL (6-23); CALCIUM, SERUM 8.4 MG/DL (8.5-10.4); CHLORIDE, SERUM 110 MMOL/L (96-112); CO2 (CARBON DIOXIDE) 26 MMOL/L (24-34); CREATININE 1.02 MG/DL (0.70-1.30); GFR AFRICAN AMERICAN 85 ML/MIN (>=60); GFR NON AFRICAN AMERICAN 74 ML/MIN (>=60); GLUCOSE, SERUM 94 MG/DL (60-99); POTASSIUM, SERUM 3.4 MMOL/L (3.5-5.3); SODIUM, SERUM 147 MMOL/L (135-148)
[2017-02-07 23:08] LABS: GLYCOHEMOGLOBIN (HbA1c) 5.8 % (4.7-6.1)
[2017-02-08 05:37] LABS: BUN (BLOOD UREA NITROGEN) 5 MG/DL (6-23); CALCIUM, SERUM 8.8 MG/DL (8.5-10.4); CHLORIDE, SERUM 105 MMOL/L (96-112); CO2 (CARBON DIOXIDE) 29 MMOL/L (24-34); CREATININE 0.96 MG/DL (0.70-1.30); GFR AFRICAN AMERICAN 92 ML/MIN (>=60); GFR NON AFRICAN AMERICAN 79 ML/MIN (>=60); GLUCOSE, SERUM 102 MG/DL (60-99); POTASSIUM, SERUM 3.4 MMOL/L (3.5-5.3); SODIUM, SERUM 141 MMOL/L (135-148)
[2017-02-08 05:54] LABS: CPK 127 U/L (0-200)
[2017-02-09 04:53] LABS: BASOPHILS 0.5 %; BASOPHILS ABSOLUTE 0.03 10/3/uL (0.0-0.16); EOSINOPHILS 8.3 %; EOSINOPHILS ABSOLUTE 0.54 10/3/uL (0.0-0.53); HEMATOCRIT 32.7 % (40.0-51.0); HEMOGLOBIN 10.7 g/dL (13.6-17.8); IMMATURE GRANULOCYTES 0.3 %; IMMATURE GRANULOCYTES ABSOLUTE 0.02 10/3/uL (0.0-0.11); LYMPHOCYTES 26.7 %; LYMPHOCYTES ABSOLUTE 1.73 10/3/uL (0.67-4.30); MEAN CORPUS HGB CONC 32.7 g/dL (32.0-36.0); MEAN CORPUSCULAR HEMOGLOB 30.7 pg (26.0-34.0); MEAN PLATELET VOLUME 10.1 fL (9.2-13.0); MONOCYTES 10.6 %; MONOCYTES ABSOLUTE 0.69 10/3/uL (0.21-1.20); NEUTROPHILS 53.6 %; NEUTROPHILS ABSOLUTE 3.47 10/3/uL (2.02-8.40); PLATELET COUNT 191 10/3/uL (150-400); RBC DISTRIBUTION WIDTH 13.5 % (12.0-16.0); RED CELL COUNT 3.48 10/6/uL (4.7-6.1); WHITE BLOOD CELLS 6.5 10/3/uL (4.5-10.5)
[2017-02-09 04:55] LABS: ALBUMIN 2.9 G/DL (3.5-5.0); BUN (BLOOD UREA NITROGEN) 5 MG/DL (6-23); CALCIUM, SERUM 8.8 MG/DL (8.5-10.4); CHLORIDE, SERUM 107 MMOL/L (96-112); CO2 (CARBON DIOXIDE) 30 MMOL/L (24-34); CREATININE 1.09 MG/DL (0.70-1.30); GFR AFRICAN AMERICAN 79 ML/MIN (>=60); GFR NON AFRICAN AMERICAN 68 ML/MIN (>=60); GLUCOSE, SERUM 96 MG/DL (60-99); SGOT(AST) 17 U/L (5-40); SGPT(ALT) 16 U/L (5-65); SODIUM, SERUM 144 MMOL/L (135-148); TOTAL BILIRUBIN 0.3 MG/DL (0-1.2); TOTAL PROTEIN 5.9 G/DL (6.0-8.5)
[2017-02-09 04:59] LABS: MANUAL DIFF NO %
[2017-02-09 05:07] LABS: ALKALINE PHOSPHATASE 82 U/L (45-117); POTASSIUM, SERUM 4.1 MMOL/L (3.5-5.3)
[2017-02-10 05:14] LABS: BASOPHILS 0.1 %; BASOPHILS ABSOLUTE 0.01 10/3/uL (0.0-0.16); EOSINOPHILS 6.9 %; EOSINOPHILS ABSOLUTE 0.47 10/3/uL (0.0-0.53); HEMATOCRIT 34.2 % (40.0-51.0); HEMOGLOBIN 11.4 g/dL (13.6-17.8); IMMATURE GRANULOCYTES 0.6 %; IMMATURE GRANULOCYTES ABSOLUTE 0.04 10/3/uL (0.0-0.11); LYMPHOCYTES 33.5 %; LYMPHOCYTES ABSOLUTE 2.29 10/3/uL (0.67-4.30); MANUAL DIFF NO %; MEAN CORPUS HGB CONC 33.3 g/dL (32.0-36.0); MEAN CORPUSCULAR VOLUME 92.9 fL (80-100); MEAN PLATELET VOLUME 9.9 fL (9.2-13.0); MONOCYTES 10.7 %; MONOCYTES ABSOLUTE 0.73 10/3/uL (0.21-1.20); NEUTROPHILS 48.2 %; PLATELET COUNT 214 10/3/uL (150-400); RBC DISTRIBUTION WIDTH 13.5 % (12.0-16.0); RED CELL COUNT 3.68 10/6/uL (4.7-6.1); WHITE BLOOD CELLS 6.8 10/3/uL (4.5-10.5)
[2017-02-10 05:24] LABS: A/G RATIO 0.9 (0.7-1.9); ALKALINE PHOSPHATASE 78 U/L (45-117); BUN (BLOOD UREA NITROGEN) 8 MG/DL (6-23); CALCIUM, SERUM 8.8 MG/DL (8.5-10.4); CHLORIDE, SERUM 103 MMOL/L (96-112); CO2 (CARBON DIOXIDE) 33 MMOL/L (24-34); CREATININE 1.15 MG/DL (0.70-1.30); GFR AFRICAN AMERICAN 74 ML/MIN (>=60); GFR NON AFRICAN AMERICAN 64 ML/MIN (>=60); GLOBULIN 3.2 G/DL (2.5-4.1); GLUCOSE, SERUM 94 MG/DL (60-99); POTASSIUM, SERUM 3.9 MMOL/L (3.5-5.3); SGOT(AST) 14 U/L (5-40); SGPT(ALT) 14 U/L (5-65); SODIUM, SERUM 142 MMOL/L (135-148); TOTAL BILIRUBIN 0.3 MG/DL (0-1.2); TOTAL PROTEIN 6.2 G/DL (6.0-8.5)
[2017-02-11 07:07] LABS: BASOPHILS 0.1 %; BASOPHILS ABSOLUTE 0.01 10/3/uL (0.0-0.16); EOSINOPHILS 5.7 %; HEMATOCRIT 35.5 % (40.0-51.0); IMMATURE GRANULOCYTES 0.4 %; IMMATURE GRANULOCYTES ABSOLUTE 0.03 10/3/uL (0.0-0.11); LYMPHOCYTES 26.2 %; LYMPHOCYTES ABSOLUTE 1.84 10/3/uL (0.67-4.30); MEAN CORPUS HGB CONC 33.8 g/dL (32.0-36.0); MEAN CORPUSCULAR HEMOGLOB 31.3 pg (26.0-34.0); MEAN CORPUSCULAR VOLUME 92.4 fL (80-100); MEAN PLATELET VOLUME 10.1 fL (9.2-13.0); MONOCYTES 10.5 %; MONOCYTES ABSOLUTE 0.74 10/3/uL (0.21-1.20); NEUTROPHILS 57.1 %; NEUTROPHILS ABSOLUTE 4.01 10/3/uL (2.02-8.40); PLATELET COUNT 230 10/3/uL (150-400); RBC DISTRIBUTION WIDTH 13.8 % (12.0-16.0); RED CELL COUNT 3.84 10/6/uL (4.7-6.1)
[2017-02-11 07:10] LABS: MANUAL DIFF NO %
[2017-02-11 07:21] LABS: A/G RATIO 0.9 (0.7-1.9); ALBUMIN 3.2 G/DL (3.5-5.0); ALKALINE PHOSPHATASE 146 U/L (45-117); BUN (BLOOD UREA NITROGEN) 9 MG/DL (6-23); CALCIUM, SERUM 9.1 MG/DL (8.5-10.4); CHLORIDE, SERUM 102 MMOL/L (96-112); CO2 (CARBON DIOXIDE) 31 MMOL/L (24-34); CREATININE 1.27 MG/DL (0.70-1.30); GFR AFRICAN AMERICAN 65 ML/MIN (>=60); GFR NON AFRICAN AMERICAN 56 ML/MIN (>=60); GLOBULIN 3.5 G/DL (2.5-4.1); GLUCOSE, SERUM 93 MG/DL (60-99); POTASSIUM, SERUM 3.7 MMOL/L (3.5-5.3); SGOT(AST) 32 U/L (5-40); SGPT(ALT) 21 U/L (5-65); SODIUM, SERUM 140 MMOL/L (135-148); TOTAL BILIRUBIN 0.3 MG/DL (0-1.2); TOTAL PROTEIN 6.7 G/DL (6.0-8.5)
[2017-02-12 06:31] LABS: A/G RATIO 1.2 (0.7-1.9); ALBUMIN 3.5 G/DL (3.5-5.0); ALKALINE PHOSPHATASE 153 U/L (45-117); BUN (BLOOD UREA NITROGEN) 10 MG/DL (6-23); CALCIUM, SERUM 9.2 MG/DL (8.5-10.4); CHLORIDE, SERUM 105 MMOL/L (96-112); CO2 (CARBON DIOXIDE) 27 MMOL/L (24-34); GFR AFRICAN AMERICAN 70 ML/MIN (>=60); GFR NON AFRICAN AMERICAN 60 ML/MIN (>=60); GLUCOSE, SERUM 101 MG/DL (60-99); POTASSIUM, SERUM 4.1 MMOL/L (3.5-5.3); SGPT(ALT) 23 U/L (5-65); SODIUM, SERUM 141 MMOL/L (135-148); TOTAL BILIRUBIN 0.3 MG/DL (0-1.2); TOTAL PROTEIN 6.5 G/DL (6.0-8.5)
[2017-02-12 06:32] LABS: SGOT(AST) 36 U/L (5-40)
[2017-02-12 09:07] LABS: BASOPHILS 0.1 %; BASOPHILS ABSOLUTE 0.01 10/3/uL (0.0-0.16); EOSINOPHILS 5.5 %; EOSINOPHILS ABSOLUTE 0.37 10/3/uL (0.0-0.53); HEMATOCRIT 35.5 % (40.0-51.0); HEMOGLOBIN 11.8 g/dL (13.6-17.8); IMMATURE GRANULOCYTES 0.4 %; IMMATURE GRANULOCYTES ABSOLUTE 0.03 10/3/uL (0.0-0.11); LYMPHOCYTES 26.3 %; LYMPHOCYTES ABSOLUTE 1.77 10/3/uL (0.67-4.30); MEAN CORPUS HGB CONC 33.2 g/dL (32.0-36.0); MEAN CORPUSCULAR HEMOGLOB 31.2 pg (26.0-34.0); MEAN CORPUSCULAR VOLUME 93.9 fL (80-100); MEAN PLATELET VOLUME 10.2 fL (9.2-13.0); MONOCYTES 10.4 %; NEUTROPHILS 57.3 %; NEUTROPHILS ABSOLUTE 3.85 10/3/uL (2.02-8.40); PLATELET COUNT 234 10/3/uL (150-400); RBC DISTRIBUTION WIDTH 13.6 % (12.0-16.0); RED CELL COUNT 3.78 10/6/uL (4.7-6.1); WHITE BLOOD CELLS 6.7 10/3/uL (4.5-10.5)
[2017-02-12 09:08] LABS: MANUAL DIFF NO %
[2017-02-13 05:31] LABS: A/G RATIO 1.1 (0.7-1.9); ALBUMIN 3.2 G/DL (3.5-5.0); BUN (BLOOD UREA NITROGEN) 10 MG/DL (6-23); CALCIUM, SERUM 9.1 MG/DL (8.5-10.4); CHLORIDE, SERUM 104 MMOL/L (96-112); CO2 (CARBON DIOXIDE) 31 MMOL/L (24-34); CREATININE 1.08 MG/DL (0.70-1.30); GFR AFRICAN AMERICAN 80 ML/MIN (>=60); GFR NON AFRICAN AMERICAN 69 ML/MIN (>=60); GLUCOSE, SERUM 94 MG/DL (60-99); POTASSIUM, SERUM 3.6 MMOL/L (3.5-5.3); SGOT(AST) 24 U/L (5-40); SGPT(ALT) 21 U/L (5-65); SODIUM, SERUM 141 MMOL/L (135-148); TOTAL BILIRUBIN 0.2 MG/DL (0-1.2); TOTAL PROTEIN 6.2 G/DL (6.0-8.5)
[2017-02-13 05:33] LABS: ALKALINE PHOSPHATASE 118 U/L (45-117)
[2017-02-13 06:03] LABS: BASOPHILS 0.1 %; BASOPHILS ABSOLUTE 0.01 10/3/uL (0.0-0.16); EOSINOPHILS 6.6 %; EOSINOPHILS ABSOLUTE 0.47 10/3/uL (0.0-0.53); HEMATOCRIT 36.1 % (40.0-51.0); IMMATURE GRANULOCYTES 0.4 %; IMMATURE GRANULOCYTES ABSOLUTE 0.03 10/3/uL (0.0-0.11); LYMPHOCYTES 31.3 %; LYMPHOCYTES ABSOLUTE 2.21 10/3/uL (0.67-4.30); MEAN CORPUS HGB CONC 33.2 g/dL (32.0-36.0); MEAN CORPUSCULAR HEMOGLOB 31.1 pg (26.0-34.0); MEAN CORPUSCULAR VOLUME 93.5 fL (80-100); MEAN PLATELET VOLUME 10.2 fL (9.2-13.0); MONOCYTES 10.2 %; MONOCYTES ABSOLUTE 0.72 10/3/uL (0.21-1.20); NEUTROPHILS 51.4 %; NEUTROPHILS ABSOLUTE 3.63 10/3/uL (2.02-8.40); PLATELET COUNT 250 10/3/uL (150-400); RBC DISTRIBUTION WIDTH 13.9 % (12.0-16.0); RED CELL COUNT 3.86 10/6/uL (4.7-6.1); WHITE BLOOD CELLS 7.1 10/3/uL (4.5-10.5)
[2017-02-13 06:04] LABS: MANUAL DIFF NO %
[2017-02-14] MEDS ORDERED: PLAVIX PO (13:35)
[2017-02-14] MEDS ORDERED: LIPITOR80 MG PO (13:36)
[2017-02-14] MEDS ORDERED: BENTYL20 PO (13:37)
[2017-02-14] MEDS ORDERED: REGL PO/LIQ (13:37)
[2017-02-14] MEDS ORDERED: PRIN2.5 PO (13:38)
[2017-05-14] MEDS ORDERED: LIPITOR80 MG PO (14:19)
[2017-05-14] MEDS ORDERED: HALF81 PO (14:19)
[2017-05-14] MEDS ORDERED: PLAVIX PO (14:20)
[2017-05-14] MEDS ORDERED: BENTYL20 PO (14:21)
[2017-05-14] MEDS ORDERED: LIDODERM TOP (14:23)
[2017-05-14] MEDS ORDERED: ZESTRIL2.5 MG PO (14:23)
[2017-05-14] MEDS ORDERED: LOP25 PO (14:24)
[2017-05-14] MEDS ORDERED: NITROSTAT0.4 MG SL (14:25)
[2017-05-14] MEDS ORDERED: PERCOCET 10/3251 TAB PO (14:25)
[2017-05-14] MEDS ORDERED: PR25 PO (14:26)
[2017-05-14] MEDS ORDERED: AMB10 PO (14:27)
[2017-05-18] MEDS ORDERED: ZOFRAN4 PO (11:33)
[2017-05-18] MEDS ORDERED: REG5 PO (11:33)
== END 2017-02-14 15:47 | disposition home or self-care (01) | DRG 356 ==
LOC: CDU2 00:31 → 7NO 02-06 01:11
PROVIDERS: Hospitalist; Internal Medicine; Nurse Practitioner Family; Psychiatry & Neurology Neurology; Surgery
PROC: 4A023N7 Measurement of Cardiac Sampling and Pressure, Left Heart, Percutaneous Approach (ICD-10-PCS; principal; 2017-02-12)
PROC: B2111ZZ Fluoroscopy of Multiple Coronary Arteries using Low Osmolar Contrast (ICD-10-PCS; 2017-02-12)
PROC: B2151ZZ Fluoroscopy of Left Heart using Low Osmolar Contrast (ICD-10-PCS; 2017-02-12)
PROC: 03743DZ Dilation of Left Subclavian Artery with Intraluminal Device, Percutaneous Approach (ICD-10-PCS; 2017-02-13 15:45)
DX: K31.84 Gastroparesis (principal); I63.232 Cerebral infarction due to unspecified occlusion or stenosis of left carotid arteries; N17.9 Acute kidney failure, unspecified; I47.2 Ventricular tachycardia; I24.8 Other forms of acute ischemic heart disease; I16.1 Hypertensive emergency; J44.9 Chronic obstructive pulmonary disease, unspecified; R27.0 Ataxia, unspecified; I25.10 Atherosclerotic heart disease of native coronary artery without angina pectoris; K21.9 Gastro-esophageal reflux disease without esophagitis; Z87.891 Personal history of nicotine dependence; Z79.82 Long term (current) use of aspirin; K57.90 Diverticulosis of intestine, part unspecified, without perforation or abscess without bleeding; I70.8 Atherosclerosis of other arteries; I10 Essential (primary) hypertension; E78.5 Hyperlipidemia, unspecified; E87.6 Hypokalemia; R47.1 Dysarthria and anarthria
CPT/HCPCS: 36215; 36221; 37236; 70450; 70551; 74250; 75710; 78264; 80048; 80053; 80061; 82140; 82150; 82272; 82550; 82553; 82607; 82728; 82746; 82962; 83036; 83540; 83550; 83605; 83690; 83735; 84100; 84439; 84443; 84484; 85025; 87045; 87046; 87046-59; 87328; 87329; 87493; 87493-59; 87899; 87899-59; 89055; 93005; 93306; 93458; 93880; 93975; 97162-GP; 97165-GO; 99152; A9270-GY; A9541; A9577; C1760; C1769; C1876; C1887; C1894; C8900; C9113; G8978-CI-GP; G8979-CI-GP; G8980-CI-GP; G8987-CI-GO; G8988-CI-GO; G8989-CI-GO; J0360; J0690; J1170; J2250; J2405; J2550; J3010; J3370; Q9966; Q9967